=== PATIENT | male | born 1965 | race American Indian/Alaskan Native ===

== ENCOUNTER 2020-10-22 09:46 | Day surgery (SDC) | payer BC, OTHER ==
[~2020-10-22 09:46] MED LIST: Acetaminophen 1,000 MG in Premix Bag 1 BAG IV ONE; Bupivacaine 0.5% 30 ML SDV ONE; Lactated Ringers 1,000 ML IV SCH; Midazolam 1 MG/ML 2 ML SDV ONE; Octyl 2-Cyanoacrylate 1 Tube ONE; Pregabalin 75 MG Cap PO SCH; Propofol 200 MG/20 ML SDV ONE; ceFAZolin 2 GM in Premix Bag 1 BAG IV ONE; fentaNYL 250 MCG/5 ML SDV ONE
[2020-10-22] MEDS ORDERED: Indocyanine Green 25 MG SDV ONE (09:48)
[2020-10-22] MEDS ORDERED: fentaNYL 100 MCG/2 ML SDV IVPUSH PRN (10:13)
[2020-10-22] MEDS ORDERED: Acetaminophen 1,000 MG in Premix Bag 1 BAG IV PRN (10:13)
[2020-10-22] MEDS ORDERED: Sodium Chloride 0.9% 20 ML ONE (10:14)
[2020-10-22] MEDS ORDERED: ceFAZolin 1 GM Vial ONE (10:14)
--- NOTE | 2020-10-22 10:27 | PCM.PREANE ---
Preanesthetic Assessment - Anesthesia/Transfusion/Family Hx Anesthesia History: Prior Anesthesia Without Reaction Family History of Anesthesia Reaction: No Transfusion History: No Prior Transfusion(s) - Physical Assessment NPO Status Date: 10/22/20 NPO Status Time: 00:05 Vital Signs: Last Vital Signs Temp 36.1 C 10/22/20 10:05 Pulse 70 10/22/20 10:05 Resp 16 10/22/20 10:05 BP 137/81 10/22/20 10:05 Pulse Ox 95 10/22/20 10:05 Height: 1.73 m Weight: 84.368 kg ASA Class: 2 - Allergies Allergies/Adverse Reactions: Allergies Allergy/AdvReac Type Severity Reaction Status Date / Time No Known Allergies Allergy Verified 10/15/20 08:24 - Acknowledgements Anesthesia Type Planned: General Anesthesia Pt an Appropriate Candidate for the Planned Anesthesia: Yes Alternatives and Risks of Anesthesia Discussed w Pt/Guardian: Yes Pt/Guardian Understands and Agrees with Anesthesia Plan: Yes PreAnesthesia Questionnaire - Past Health History Medical/Surgical History: Denies Medical/Surgical History HEENT History: Reports: Other (See Below) Other HEENT History: wears glasses, has "borderline" glaucoma Cardiovascular History: Reports: Hypertension Respiratory History: Reports: None Gastrointestinal History: Reports: None Genitourinary History: Reports: None Musculoskeletal History: Reports: None Neurological History: Reports: None Psychiatric History: Reports: Depression, Panic Attack Other Psychiatric History: does not take any medications for depression & anxiety Endocrine/Metabolic History: Reports: None Hematologic History: Reports: None Immunologic History: Reports: None Oncologic (Cancer) History: Reports: None Dermatologic History: Reports: None - Past Surgical History Head Surgeries/Procedures: Reports: None HEENT Surgical History: Reports: Oral Surgery Other HEENT Surgeries/Procedures: wisdom teeth extraction Cardiovascular Surgical History: Reports: None Respiratory Surgical History: Reports: None GI Surgical History: Reports: Hernia, Inguinal Other GI Surgeries/Procedures: was told he had a right inguinal hernia repair as a baby Male Surgical History: Reports: None Endocrine Surgical History: Reports: None Neurological Surgical History: Reports: None Musculoskeletal Surgical History: Reports: None Oncologic Surgical History: Reports: None Dermatological Surgical History: Reports: None - SUBSTANCE USE Tobacco Use Status *Q: Current Every Day Tobacco User Tobacco Use Within Last Twelve Months: Cigarettes Recreational Drug Use History: No - HOME MEDS Home Medications: Home Meds lisinopriL [Lisinopril] 40 mg PO DAILY 10/15/20 [History] - CURRENT (IN HOUSE) MEDS Current Meds: Current Medications Fentanyl (Fentanyl 100 Mcg/2 Ml Sdv) 50 mcg IVPUSH Q5M PRN PRN Reason: Pain Lactated Ringer's (Ringers, Lactated) 1,000 mls @ 125 mls/hr IV ASDIRECTED FORMERLY [facility], 1928–1983 Last Admin: 10/22/20 10:04 Dose: 125 mls/hr Documented by: Acetaminophen 1,000 mg/ Premix 100 mls @ 400 mls/hr IV Q6H PRN PRN Reason: Pain Pregabalin (Pregabalin 75 Mg Cap) 150 mg PO DAILY FOR[facility]LY [facility], 1928–1983 Last Admin: 10/22/20 10:03 Dose: 150 mg Documented by: Discontinued Medications Bupivacaine HCl (Bupivacaine 0.5% 30 Ml Sdv) Confirm Administered Dose 30 ml .ROUTE .STK-MED ONE Stop: 10/22/20 08:39 Cefazolin Sodium (Cefazolin 1 Gm Vial) Confirm Administered Dose 2 gm .ROUTE .STK-MED ONE Stop: 10/22/20 10:15 Fentanyl (Fentanyl 250 Mcg/5 Ml Sdv) Confirm Administered Dose 250 mcg .ROUTE .STK-MED ONE Stop: 10/22/20 06:51 Cefazolin Sodium/Dextrose 2 gm (/ Premix) 50 mls @ 100 mls/hr IV ONETIME ONE Stop: 10/21/20 09:13 Acetaminophen 1,000 mg/ Premix 100 mls @ 400 mls/hr IV NOW ONE Stop: 10/21/20 08:58 Sodium Chloride (Normal Saline) Confirm Administered Dose 20 mls @ as directed .ROUTE .STK-MED ONE Stop: 10/22/20 10:15 Indocyanine Green (Indocyanine Green 25 Mg Sdv) Confirm Administered Dose 25 mg .ROUTE .STK-MED ONE Stop: 10/22/20 09:49 Midazolam HCl (Midazolam 1 Mg/Ml 2 Ml Sdv) Confirm Administered Dose 2 mg .ROUTE .STK-MED ONE Stop: 10/22/20 06:51 Octyl Cyanoacrylate (Octyl 2-Cyanoacrylate 1 Tube) Confirm Administered Dose 1 applic .ROUTE .STK-MED ONE Stop: 10/22/20 08:39 Propofol (Propofol 200 Mg/20 Ml Sdv) Confirm Administered Dose 200 mg .ROUTE .STK-MED ONE Stop: 10/22/20 06:51
[2020-10-22] MEDS ORDERED: Glycopyrrolate 0.2 MG/ML SDV ONE (10:42)
[2020-10-22] MEDS ORDERED: Lidocaine 2% 5 ML SDV ONE (10:42)
[2020-10-22] MEDS ORDERED: Ketorolac 30 MG/ML SDV ONE (10:42)
[2020-10-22] MEDS ORDERED: Ondansetron 4 MG/2 ML SDV ONE (10:42)
--- NOTE | 2020-10-22 12:17 | PCM.OPNOTE ---
- General Post-Op/Procedure Note Date of Surgery/Procedure: 10/22/20 Operative Procedure(s): Laparoscopic repair of left inguinal hernia and removal of skin tag from scrotum. Findings: Left cord lipoma and indirect hernia dictation number [id number] Pre Op Diagnosis: Left inguinal hernia. Scrotal skin tag Post-Op Diagnosis: Same Anesthesia Technique: General LMA Primary Surgeon: Choco Kim Pathology: scrotal skin tag EBL in mLs: 5 Complications: None Condition: Good
--- NOTE | 2020-10-22 12:58 | PCM.POSTAN ---
POST ANESTHESIA ASSESSMENT - VITAL SIGNS Vital Signs: Last Vital Signs Temp 98.4 F 10/22/20 12:17 Pulse 74 10/22/20 12:55 Resp 13 10/22/20 12:55 BP 99/68 10/22/20 12:55 Pulse Ox 93 L 10/22/20 12:55 - RESPIRATORY Respiratory Status: Respiratory Rate WNL, Airway Patent, O2 Saturation Stable - CARDIOVASCULAR CV Status: Pulse Rate WNL, Blood Pressure Stable - GASTROINTESTINAL GI Status: No Symptoms - POST OP HYDRATION Hydration Status: Adequate & Stable - OBSERVATIONS Free Text/Narrative:: Pt doing well post-op
--- NOTE | 2020-10-22 13:03 | PCM48HPAN ---
Post Anesthesia Note - EVALUATION WITHIN 48HRS OF ANESTHETIC Vital Signs in Normal Range: Yes Patient Participated in Evaluation: Yes Respiratory Function Stable: Yes Airway Patent: Yes Cardiovascular Function Stable: Yes Hydration Status Stable: Yes Pain Control Satisfactory: Yes Nausea and Vomiting Control Satisfactory: Yes Mental Status Recovered: Yes Vital Signs: Last Vital Signs Temp 98.4 F 10/22/20 12:17 Pulse 74 10/22/20 12:55 Resp 13 10/22/20 12:55 BP 99/68 10/22/20 12:55 Pulse Ox 93 L 10/22/20 12:55 - COMMENTS/OBSERVATIONS Free Text/Narrative:: Pt doing well post-op. VSS. No apparent anesthetic complications. Dr. Rian Field
[2020-10-22 13:21] VITALS: BP 109/76; PULSE 72
--- NOTE | 2020-10-23 07:29 | OR ---
SURGEON: MIGUELITO EDDY MD DATE OF PROCEDURE: 10/22/2020 PREOPERATIVE DIAGNOSES: Left inguinal hernia and scrotal skin tag. POSTOPERATIVE DIAGNOSES: Left inguinal hernia and scrotal skin tag. PROCEDURE PERFORMED: Laparoscopic left inguinal hernia repair with mesh and removal of scrotal skin tag. PRIMARY SURGEON: Miguelito Eddy MD ANESTHESIA: General. ESTIMATED BLOOD LOSS: 5 mL. SPECIMEN: Scrotal skin tag. FINDINGS: Left cord lipoma and indirect hernia sac. COMPLICATIONS: None. REASON FOR PROCEDURE: The patient is a pleasant 55-year-old gentleman who a couple of months ago noticed a left inguinal hernia. He did have a CT scan that showed a sac containing left inguinal hernia. I did go over with the patient risks, goals, and alternatives to procedure. Risks include, but are not limited to bleeding, infection, injury to his spermatic cord, complete loss of testicle, chronic nerve pain, recurrence, bleeding, hematoma, seroma, need to convert to open, mesh infection, and urinary retention. I also went over risks of removing the skin tag which include infection, need for further surgery, injury to underlying structures, and bleeding. The patient understands. He wishes to proceed. OPERATION NARRATIVE: The patient was brought back to the OR. He was prepped and draped in the usual sterile fashion. SCDs were placed. Amaya catheter was placed. Antibiotics were given and anesthesia was provided by the Anesthesia team. After a time-out was performed, an infraumbilical incision was made. This was made down to the external rectus. Once the incision was made, the underlying rectus muscle was atraumatically split down to the posterior rectus sheath. Now, a balloon dissecting system was placed to the level of pubic symphysis and inflated under direct visualization. The balloon dissecting system was removed and a Seng trocar was placed, and preperitoneal pneumo was established. Now, two more 5 mm trocars were placed in the midline under direct visualization. Attention was put to the left side. First, the pubic tubercle was finished clearing off. Now, the left lateral wall was cleared taking care not to injure the spermatic cord. The patient did have a small cord lipoma which was reduced. The patient next had an indirect inguinal hernia. This was carefully dissected off the spermatic cord and cord structures. The patient did not have a direct inguinal defect. Now, a large 3DMax MID Bard mesh was placed. This was placed and fit nicely. It was secured to the periosteum of Leonid ligament with absorbable tack and then once laterally. The inferior edge was tucked underneath the peritoneal reflection. Both cord lipoma and indirect hernia sac were brought above the mesh. The preperitoneal pneumo was released. The mesh laid in good position and nothing seemed to slip underneath the mesh. Preperitoneal pneumo was then re-established. Again, everything appeared to be in good position. The mesh was nice and flat. There was good hemostasis. Now, the pneumoperitoneum was released and the 5 mm trocars were removed. The Seng trocar was also removed. Now, the external rectus fascia was closed with figure- of-eight 0 Vicryl. The trocar sites were all injected with the remaining of the local and closed with 4-0 Monocryl and Dermabond. Now, the drapes were cut and then the scrotum was re-prepped. The patient did have a skin tag on the left side of his scrotum. The base of it was injected with local and then transected at the base of the skin tag with the scissors. This was sent to Pathology. The base was then cauterized with good hemostasis. A thin layer of antibiotic ointment was placed. At the end of the case, sponge and needle counts were correct. Both testicles were in the scrotum. The patient was transferred to recovery room in stable condition. ALETHEA / GARCIA /[id number]
== END 2020-10-22 14:25 | disposition home or self-care (01) ==
LOC: MW.SDS 09:46
PROVIDERS: ATTEND Surgery
DX: K40.90 Unilateral inguinal hernia, without obstruction or gangrene, not specified as recurrent (principal); D17.6 Benign lipomatous neoplasm of spermatic cord; N50.89 Other specified disorders of the male genital organs; L91.8 Other hypertrophic disorders of the skin; F17.210 Nicotine dependence, cigarettes, uncomplicated; I10 Essential (primary) hypertension
CPT/HCPCS: 11200; 49650; 88304; A9270; C1781; J0690; J1885; J2250; J2370; J2405; J2704; J3010; J3490; J7120; 00840

== ENCOUNTER 2021-03-20 13:56 | Emergency (ER) | payer BC ==
[2021-03-20 15:44] LABS: CORONAVIRUS COVID-19 NAA POSITIVE (NEGATIVE); INFLUENZA A NAA NEGATIVE (NEGATIVE); INFLUENZA B NAA NEGATIVE (NEGATIVE)
[2021-03-20] MEDS ORDERED: Sodium Chloride 0.9% 2.5 ML Syringe FLUSH PRN (16:20)
[2021-03-20] MEDS ORDERED: Ketorolac 30 MG/ML SDV IVPUSH ONE (16:21)
[2021-03-20] MEDS ORDERED: Ondansetron 4 MG/2 ML SDV IVPUSH ONE (16:21)
[2021-03-20] MEDS ORDERED: Sodium Chloride 0.9% 1,000 ML IV ONE (16:21)
--- NOTE | 2021-03-20 16:24 | EDM.PDOC ---
ED HPI GENERAL MEDICAL PROBLEM - General Chief Complaint: General Stated Complaint: COVID SYMPTOMS Time Seen by Provider: 03/20/21 14:03 Source of Information: Reports: Patient History Limitations: Reports: No Limitations - History of Present Illness INITIAL COMMENTS - FREE TEXT/NARRATIVE: HISTORY AND PHYSICAL: History of present illness: The patient is a 55-year-old male who presents to the emergency department with complaints of a headache, body aches, chills, cough, chest congestion, and nasal congestion for 3 days. Patient patient denies any fever, chills, headache, c hange in vision, syncope or near syncope. Denies any chest pain, back pain, shortness of breath or cough. Denies any abdominal pain, nausea, vomiting, diarrhea, constipation or dysuria. Has not noted any blood in urine or stool. Patient has been eating and drinking appropriately. Nausea vomiting or diarrhea. The patient has had decreased appetite and states he has not been drinking well today. He has been urinating normally. Patient has not treated his symptoms with any [id number] medications. Patient denies any change in vision, syncope or near syncope. Denies any chest pain, back pain, or shortness of breath. Denies any abdominal pain, nausea, vomiting, diarrhea, constipation or dysuria. Has not noted any blood in urine or stool. The patient is not COVID-19 vaccinated. Review of systems: As per history of present illness and below otherwise all systems reviewed and negative. Past medical history: As per history of present illness and as reviewed below otherwise nonco ntributory. Surgical history: As per history of present illness and as reviewed below otherwise noncontributory. Social history: See social history for further information Family history: As per history of present illness and as reviewed below otherwise noncontributory. Physical exam: General: Well developed and well nourished. Alert and orientated x 3. Nontoxic in appearance and in no acute distress. Vital signs are stable and have been reviewed by me. Nursing notes were reviewed. HEENT: Atraumatic, normocephalic, pupils equal and reactive bilaterally, negative for conjunctival pallor or scleral icterus, mucous membranes moist, TMs normal bilaterally, throat clear, neck supple, nontender, trachea midline. No drooling or trismus noted. No meningeal signs. No hot potato voice noted. Lungs: Clear to auscultation bilaterally. No wheezes, rales, or rhonchi. Chest nontender. Normal work of breathing, no accessory muscles used. Heart: S1S2, regular rate and rhythm without overt murmur, gallops, or rubs. No JVD. No peripheral edema Abdomen: Soft, nondistended, nontender. Normoactive bowel sounds. Negative for masses or costovertebral tenderness. Skin: Intact, warm, dry. No lesions or rashes noted. Hematologic: No petechiae or purpra. Mucosa appropriate color and normal nail bed color and refill. Extremities: Atraumatic, moves all extremities per self without difficulty or d eficits, negative for cords or calf pain. Neurovascular unremarkable. Neuro: Awake, alert, oriented. Cranial nerves II through XII unremarkable. Cerebellum unremarkable. Motor and sensory unremarkable throughout. Exam nonfocal. Psychiatric: Mood and affect are appropriate. Normal thought process. Answering questions appropriately. Notes: *This patient was seen and evaluated during the 2019 SARS-CoV-2 novel coronavirus pandemic period. Community viral transmission is ongoing at time of this encounter and the emergency department is operating under pandemic response procedures. As stated above the patient is a 55-year-old male who presents to the emergency department complaining of headache, body aches, chills, cough and chest congestion along with nasal congestion for the last 3 days. The patient has not been checking his fever at home but does state that he had night sweats. The patient denies any nausea, vomiting, or diarrhea. I will do a Covid work-up on the patient. I will treat the patient with IV fluids, Zofran and Toradol. Patient is agreeable with this plan. The patient's CBC is remarkable for hemoglobin of 17.9. The patient's chemistry is remarkable for a sodium of 135. Patient did receive 1 L of normal saline. The patient's glucose is mildly elevated at 110. Patient's alkaline phosphatase is 127. Patient C-reactive protein 2.6. Patient is positive for COVID-19. Chest x-ray IMPRESSION: Unremarkable chest. I informed the patient of his lab results and of the positive COVID-19. The patient feels much better after receiving IV fluids and Zofran. I informed the patient that he would need to be off work until such time released by the state department. The patient verbalized understanding. The patient has the risk factors of male, hypertension, no COVID-19 vaccination, and a BMI over 25. I have referred the patient for monoclonal antibodies. I have given the patient a monoclonal antibody fax sheet and discussed the risk and benefits with him. I have obtained the patient's consent for the monoclonal antibodies. I educated the patient on when he would need to return to the emergency department and on how to treat his symptoms. The patient is agreeable with this discharge plan. I have talked with the patient about today's findings, in addition to providing specific details for plan of care. Reassessment at the time of disposition demonstrates that the patient is in no acute distress. The patient is stable for discharge, counseling was provided and we discussed in great detail signs and symptoms that would prompt them to return to the Emergency Department. Medication, follow up and supportive care measures were reviewed and discussed. Voices understanding and is agreeable to plan of care. Denies any further questions or concerns at this time. Diagnostics: COVID-19, CBC, CMP, EKG, CRP, chest x-ray Therapeutics: IV fluids, Zofran Impression: COVID-19 Plan: 1. Your COVID-19 screening is positive. That means you do have the coronavirus and you are considered contagious. Your vital signs and oxygen saturation are well enough that you were able to monitor your symptoms at home. Continue to monitor for trouble breathing, new confusion or inability to arouse, bluish lips or face or any of the other symptoms we discussed -if this occurs please return to the emergency room. 1a. I have sent an order over for you to have the monoclonal antibodies. I gave the number of the [phone] please ensure that you answer your phone. You can always obtain a portable oxygenation saturation and if it drops below 90% return to the emergency department. Be sure to get plenty of fluids. Your appetite might drop a little but this is expected. If you are unable to keep fluids and please return to the emergency department. 2. Please self quarantine until cleared by [facility] Department. Inform any persons that you have been in contact with since you started becoming symptomatic that you have tested positive; they should be made aware and take the appropriate steps as needed. 3. You can take NyQuil during the evening to help get a restful night sleep. May alternate Tylenol and ibuprofen as needed for pain and fever management. 4. The [facility] department will be calling you and following up with you. The [facility] Hotline phone number , They are open Tuesday - Tuesday 7am - 7pm. Follow up with your primary care provider for re-evaluation and re-testing after the 10 day quarantine and discuss when you should be seen. Definitive disposition and diagnosis as appropriate pending reevaluation and review of above. Headache Pain Score (Numeric/FACES): 9 - Related Data Allergies Allergy/AdvReac Type Severity Reaction Status Date / Time No Known Allergies Allergy Verified 03/20/21 14:54 Home Meds: Home Meds . [No Known Home Meds] 03/20/21 [History] Past Medical History - Past Health History Medical/Surgical History: Denies Medical/Surgical History HEENT History: Reports: Other (See Below) Other HEENT History: wears glasses, has "borderline" glaucoma Cardiovascular History: Reports: Hypertension Respiratory History: Reports: None Gastrointestinal History: Reports: None Genitourinary History: Reports: None Musculoskeletal History: Reports: None Neurological History: Reports: None Psychiatric History: Reports: Depression, Panic Attack Other Psychiatric History: does not take any medications for depression & anxiety Endocrine/Metabolic History: Reports: None Hematologic History: Reports: None Immunologic History: Reports: None Oncologic (Cancer) History: Reports: None Dermatologic History: Reports: None - Past Surgical History Head Surgeries/Procedures: Reports: None HEENT Surgical History: Reports: Oral Surgery Other HEENT Surgeries/Procedures: wisdom teeth extraction Cardiovascular Surgical History: Reports: None Respiratory Surgical History: Reports: None GI Surgical History: Reports: Hernia, Inguinal Other GI Surgeries/Procedures: was told he had a right inguinal hernia repair as a baby Male Surgical History: Reports: None Endocrine Surgical History: Reports: None Neurological Surgical History: Reports: None Musculoskeletal Surgical History: Reports: None Oncologic Surgical History: Reports: None Dermatological Surgical History: Reports: None Social & Family History - Family History Family Medical History: No Pertinent Family History - Recreational Drug Use Recreational Drug Use: No ED ROS GENERAL - Review of Systems Review Of Systems: Comprehensive ROS is negative, except as noted in HPI. ED EXAM, GENERAL - Physical Exam Exam: See Below (See dictation) Course - Vital Signs Last Recorded V/S: Last Vital Signs Temp 97.7 F 03/20/21 14:55 Pulse 79 03/20/21 18:33 Resp 16 03/20/21 18:33 BP 160/102 H 03/20/21 18:33 Pulse Ox 96 03/20/21 18:33 - Orders/Labs/Meds Orders: Active Orders 24 hr Category Date Time Status Saline Lock Insert [OM.PC] Stat Oth 03/20/21 16:20 Ordered Labs: Laboratory Tests 03/20/21 03/20/21 03/20/21 Range/Units 15:00 16:35 16:35 WBC 4.88 (4.0-11.0) K/uL RBC 5.50 (4.50-5.90) M/uL Hgb 17.1 H (13.0-17.0) g/dL Hct 49.4 (38.0-50.0) % MCV 89.8 (80.0-98.0) fL MCH 31.1 (27.0-32.0) pg MCHC 34.6 (31.0-37.0) g/dL RDW Std Deviation 46.2 (28.0-62.0) fl RDW Coeff of Hannah 14 (11.0-15.0) % Plt Count 236 (150-400) K/uL MPV 9.40 (7.40-12.00) fL Neut % (Auto) 62.9 (48.0-80.0) % Lymph % (Auto) 15.6 L (16.0-40.0) % Reynolds % (Auto) 18.2 H (0.0-15.0) % Eos % (Auto) 2.5 (0.0-7.0) % Baso % (Auto) 0.8 (0.0-1.5) % Neut # (Auto) 3.1 (1.4-5.7) K/uL Lymph # (Auto) 0.8 (0.6-2.4) K/uL Reynolds # (Auto) 0.9 H (0.0-0.8) K/uL Eos # (Auto) 0.1 (0.0-0.7) K/uL Baso # (Auto) 0.0 (0.0-0.1) K/uL Nucleated RBC % 0.0 /100WBC Nucleated RBCs # 0 K/uL Sodium 135 L (136-148) mmol/L Potassium 3.8 (3.5-5.1) mmol/L Chloride 99 (98-107) mmol/L Carbon Dioxide 21.4 (21.0-32.0) mmol/L BUN 12 (7.0-18.0) mg/dL Creatinine 0.9 (0.8-1.3) mg/dL Est Cr Clr Drug Dosing 88.67 mL/min Estimated GFR (MDRD) > 60.0 ml/min Glucose 110 H (74-106) mg/dL Calcium 9.1 (8.5-10.1) mg/dL Total Bilirubin 0.7 (0.2-1.0) mg/dL AST 37 (15-37) IU/L ALT 48 (14-63) IU/L Alkaline Phosphatase 127 H (46-116) U/L C-Reactive Protein 2.60 H (0.00-0.90) mg/dL Total Protein 8.6 H (6.4-8.2) g/dL Albumin 3.8 (3.4-5.0) g/dL Globulin 4.8 H (2.6-4.0) g/dL Albumin/Globulin Ratio 0.8 L (0.9-1.6) Influenza Type A RNA NEGATIVE (NEGATIVE) Influenza Type B RNA NEGATIVE (NEGATIVE) SARS-CoV-2 RNA (YANNA) POSITIVE H (NEGATIVE) Meds: Medications Discontinued Medications Generic Name Dose Route Start Last Admin Trade Name Freq PRN Reason Stop Dose Admin Sodium Chloride 1,000 mls @ 999 mls/hr 03/20/21 16:21 03/20/21 16:36 Normal Saline IV 03/20/21 17:21 999 mls/hr .BOLUS ONE Administration Ketorolac Tromethamine 30 mg 03/20/21 16:21 03/20/21 16:36 Ketorolac 30 Mg/Ml Sdv IVPUSH 03/20/21 16:22 30 mg ONETIME ONE Administration Ondansetron HCl 4 mg 03/20/21 16:21 03/20/21 16:37 Ondansetron 4 Mg/2 Ml Sdv IVPUSH 03/20/21 16:22 4 mg ONETIME ONE Administration Sodium Chloride 10 ml 03/20/21 16:20 03/20/21 18:08 Sodium Chloride 0.9% 10 Ml Syringe FLUSH 10 ml ASDIRECTED PRN Administration Keep Vein Open Sodium Chloride 2.5 ml 03/20/21 16:20 03/20/21 18:08 Sodium Chloride 0.9% 2.5 Ml Syringe FLUSH 2.5 ml ASDIRECTED PRN Administration Keep Vein Open Departure - Departure Time of Disposition: 18:16 Disposition: Home, Self-Care 01 Condition: Good Clinical Impression: COVID-19 - Discharge Information *PRESCRIPTION DRUG MONITORING PROGRAM REVIEWED*: Not Applicable *COPY OF PRESCRIPTION DRUG MONITORING REPORT IN PATIENT ELIAZAR: Not Applicable Instructions: COVID-19: What to Do If You Are Sick- [facility] (06/18/2020) Referrals: PCP,None [Primary Care Provider] - Forms: ED Department Discharge Additional Instructions: The following information is given to patients seen in the emergency department who are being discharged to home. This information is to outline your options for follow-up care. We provide all patients seen in our emergency department with a follow-up referral. The need for follow-up, as well as the timing and circumstances, are variable depending upon the specifics of your emergency department visit. If you don't have a primary care physician on staff, we will provide you with a referral. We always advise you to contact your personal physician following an emergency department visit to inform them of the circumstance of the visit and for follow-up with them and/or the need for any referrals to a consulting specialist. The emergency department will also refer you to a specialist when appropriate. This referral assures that you have the opportunity for follow-up care with a specialist. All of these measure are taken in an effort to provide you with optimal care, which includes your follow-up. Under all circumstances we always encourage you to contact your private physician who remains a resource for coordinating your care. When calling for follow-up care, please make the office aware that this follow-up is from your recent emergency room visit. If for any reason you are refused follow-up, please contact the [facility] Emergency Department at and asked to speak to the emergency department charge nurse. [facility] [address] [place] [id number] [address] [place] [address] Plan: 1. Your COVID-19 screening is positive. That means you do have the coronavirus and you are considered contagious. Your vital signs and oxygen saturation are well enough that you were able to monitor your symptoms at home. Continue to monitor for trouble breathing, new confusion or inability to arouse, bluish lips or face or any of the other symptoms we discussed -if this occurs please return to the emergency room. 1a. I have sent an order over for you to have the monoclonal antibodies. I gave the number of the [phone] please ensure that you answer your phone. You can always obtain a portable oxygenation saturation and if it drops below 90% return to the emergency department. Be sure to get plenty of fluids. Your appetite might drop a little but this is expected. If you are unable to keep fluids and please return to the emergency department. 2. Please self quarantine until cleared by [facility] Department. Inform any persons that you have been in contact with since you started becoming symptomatic that you have tested positive; they should be made aware and take the appropriate steps as needed. 3. You can take NyQuil during the evening to help get a restful night sleep. May alternate Tylenol and ibuprofen as needed for pain and fever management. 4. The [facility] department will be calling you and following up with you. The [facility] Hotline phone number , They are open Tuesday - Tuesday 7am - 7pm. Follow up with your primary care provider for re-evaluation and re-testing after the 10 day quarantine and discuss when you should be seen. Sepsis Event Note (ED) - Focused Exam Vital Signs: Vital Signs Temp Pulse Resp BP Pulse Ox 03/20/21 18:33 79 16 160/102 H 96 03/20/21 16:30 91 95 03/20/21 14:55 97.7 F 96 16 135/102 H 96 - My Orders Last 24 Hours: My Active Orders 03/20/21 16:20 Saline Lock Insert [OM.PC] Stat - Assessment/Plan Last 24 Hours: My Active Orders 03/20/21 16:20 Saline Lock Insert [OM.PC] Stat
--- NOTE | 2021-03-20 16:44 | PCM.EKG ---
#1 Interpretation EKG Date: 03/20/21 Time: 16:43 EKG Interpretation Comments: Sinus rhythm rate of 82 abnormal R wave progression but otherwise unremarkable no acute ischemia normal intervals
[2021-03-20 17:08] LABS: BLOOD UREA NITROGEN,BUN 12 mg/dL (7.0-18.0); CARBON DIOXIDE,CO2 21.4 mmol/L (21.0-32.0); CHLORIDE,CL 99 mmol/L (98-107); GLUCOSE RANDOM 110 mg/dL (74-106); POTASSIUM,K 3.8 mmol/L (3.5-5.1); SODIUM,NA 135 mmol/L (136-148)
--- NOTE | 2021-03-20 17:58 | CR ---
INDICATION: cough TECHNIQUE: Chest 1 view. COMPARISON: None. FINDINGS: Cardiovascular and mediastinum: Heart size and vasculature are normal in caliber and appearance. Mediastinum is within normal limits. Lungs and pleural space: Lungs are clear. No sign of infiltrate or mass. No sign of pleural effusion. No pneumothorax. Bones and soft tissues: No significant findings. IMPRESSION: Unremarkable chest. Dictated by: Surya Gonzalez MD @ 03/20/2021 17:56:58 (Electronically Signed)
[2021-03-20] MEDS: Sodium Chloride 0.9% 10 ML Syringe FLUSH PRN (18:08)
[2021-03-20 18:34] VITALS: BP 160/102; PULSE 79
== END 2021-03-20 18:34 | disposition home or self-care (01) ==
LOC: MW.ED 13:56
DX: U07.1 COVID-19 (principal)
CPT/HCPCS: 0240U; 36415; 71045; 80053; 85025; 86140; 93005; 96374; 96375; 99284; J1885; J2405; J7030